=== PATIENT | female | born 1970 | race Hispanic/Latino ===

== ENCOUNTER 2018-05-24 05:48 | Day surgery (SDC) | payer OTHER ==
[2018-05-22 11:53] LABS: BASOPHILS % (AUTO) 0.7 % (0.0-5.0); EOSINOPHILS % (AUTO) 1.6 % (0.0-8.0); HEMATOCRIT 38.4 % (36-48); LYMPHOCYTES % (AUTO) 40.7 % (21.0-51.0); MEAN CORPUSCULAR HEMOGLOBIN 28.7 pg (27.0-33.0); MEAN CORPUSCULAR HGB CONC 33.2 g/dL (32.0-36.0); MEAN CORPUSCULAR VOLUME 86.6 fL (79-99); MONOCYTES % (AUTO) 5.1 % (3.0-13.0); NEUTROPHILS % (AUTO) 51.9 % (40.0-77.0); NUCLEATED RED BLOOD CELLS 0.1 % (0.0-0.19); PLATELET COUNT (AUTO) 220 K/uL (130-400); RED BLOOD CELL COUNT(AUTO) 4.44 MIL/uL (4.00-5.50); RED CELL DISTRIBUTION WIDTH 12.7 % (11.0-15.5); WHITE BLOOD COUNT (AUTO) 8.1 K/uL (4.8-10.8)
[2018-05-22 12:00] VITALS: BP 145/78
[2018-05-22 12:01] LABS: CREATININE 0.8 mg/dL (0.5-1.5); POTASSIUM 4.3 mmol/L (3.5-5.1)
[2018-05-22 12:33] LABS: INR 0.95 (0.85-1.15); PARTIAL THROMBOPLASTIN TIME 29.9 SEC (26.3-35.5)
[~2018-05-24] VITALS: Ht 157.5 cm; Wt 86.6 kg
[2018-05-24] VITALS (12 sets, daily range): BP systolic 96–148; BP diastolic 68–92
[~2018-05-24 05:48] MED LIST: ACET-66 PO; ASPI-555 PO; ATOR10 PO; ESOM20CA31 PO; VERA180T8 PO
[2018-05-24] MEDS ORDERED: SODIUM CHLORIDE 0.9% 1000ML 1,000 ML IV SCH (08:00)
[2018-05-24] MEDS ORDERED: LIDOCAINE HCL 1% MDV 50ML VIAL ONE (12:43)
[2018-05-24] MEDS ORDERED: ISOPROTERENOL HCL 0.2 MG/ML AMP/VIAL/BAG ONE ×2 (12:44→14:47)
[2018-05-24] MEDS ORDERED: MEPERIDINE-PF 25 MG/ML SYG ONE ×2 (12:54→13:52)
[2018-05-24] MEDS ORDERED: MIDAZOLAM HCL 1 MG/ML 2ML VIAL ONE ×4 (12:54→15:19)
[2018-05-24] MEDS ORDERED: IODIXANOL 320 MG/ML 100 ML VIAL ONE (14:13)
[2018-05-24] MEDS ORDERED: MEPERIDINE-PF 50 MG/ML SYG ONE ×2 (14:25→15:19)
[2018-05-24] MEDS ORDERED: HEPARIN SODIUM 1000UNIT/ML 10ML VIAL ONE (14:31)
[2018-05-24] MEDS ORDERED: ACETAMINOPHEN 325 MG TAB PO PRN (16:15)
[2018-05-24] MEDS ORDERED: ACETAMINOPHEN-CODEINE 300/30MG TAB PO PRN (16:15)
[2018-05-24] MEDS ORDERED: ONDANSETRON HCL 4 MG/2 ML VIAL ONE (17:33)
== END 2018-05-24 19:50 | disposition home or self-care (01) ==
LOC: DAH 05:48
PROVIDERS: ATTEND Internal Medicine Cardiovascular Disease
DX: I47.1 Supraventricular tachycardia (principal); E78.5 Hyperlipidemia, unspecified; I10 Essential (primary) hypertension; Z90.49 Acquired absence of other specified parts of digestive tract; Z79.899 Other long term (current) drug therapy; Z82.49 Family history of ischemic heart disease and other diseases of the circulatory system; Z79.01 Long term (current) use of anticoagulants
CPT/HCPCS: 36415; 80048; 85025; 85610; 85730; 93613; 93621; 93623; 93653; A4606; A4649; C1730 ×4; C1732; C1769; C1894 ×5; J1644 ×2; J2175 ×3; J2250 ×3; J2405; J3490 ×2; Q9967; 99156; 99157

== ENCOUNTER 2018-08-18 10:54 | Emergency (ER) | payer OTHER ==
[2018-08-18] MEDS ORDERED: KETOROLAC TROMETHAMINE 30MG/ML ONE (11:20)
[2018-08-18 11:33] LABS: BASOPHILS % (AUTO) 0.7 % (0.0-5.0); HEMATOCRIT 39.5 % (36-48); LYMPHOCYTES % (AUTO) 41.4 % (21.0-51.0); MEAN CORPUSCULAR HEMOGLOBIN 29.2 pg (27.0-33.0); MEAN CORPUSCULAR HGB CONC 33.8 g/dL (32.0-36.0); MEAN CORPUSCULAR VOLUME 86.5 fL (79-99); NEUTROPHILS % (AUTO) 51.9 % (40.0-77.0); NUCLEATED RED BLOOD CELLS 0.1 % (0.0-0.19); PLATELET COUNT (AUTO) 258 K/uL (130-400); RED BLOOD CELL COUNT(AUTO) 4.57 MIL/uL (4.00-5.50); RED CELL DISTRIBUTION WIDTH 12.9 % (11.0-15.5); WHITE BLOOD COUNT (AUTO) 6.8 K/uL (4.8-10.8)
[2018-08-18 11:38] LABS: CREATININE 0.8 mg/dL (0.5-1.5); POTASSIUM 4.3 mmol/L (3.5-5.1)
[2018-08-18 11:42] LABS: INR 0.95 (0.85-1.15); PARTIAL THROMBOPLASTIN TIME 30.5 SEC (26.3-35.5)
[2018-08-18 11:44] LABS: ALBUMIN 3.5 g/dL (3.5-5.0); BILIRUBIN,TOTAL 0.2 mg/dL (0.2-1.0); TOTAL PROTEIN, SERUM 7.2 g/dL (6.0-8.3)
== END 2018-08-18 13:03 | disposition home or self-care (01) ==
LOC: EDH 10:54
DX: M62.830 Muscle spasm of back (principal); R07.89 Other chest pain; M54.6 Pain in thoracic spine; E78.5 Hyperlipidemia, unspecified; I10 Essential (primary) hypertension; Z88.0 Allergy status to penicillin; Z90.49 Acquired absence of other specified parts of digestive tract
CPT/HCPCS: 36415; 71045; 80053; 84484; 85025; 85610; 85730; 93005; 96374; 99284; J1885

== ENCOUNTER → 2018-08-24 | Outpatient (CLI) | payer OTHER ==
[~2018-08-24] MED LIST changes: +REGADENOSON 0.4 MG/5 ML PF SYG IVP SCH
== END | disposition home or self-care (01) ==
LOC: SHCH 08:40
PROVIDERS: ATTEND Internal Medicine Cardiovascular Disease
DX: R07.9 Chest pain, unspecified (principal)
CPT/HCPCS: 78452; 93017; 96374; A9500 ×2; J2785

== ENCOUNTER → 2018-08-30 | Outpatient (CLI) | payer OTHER ==
[~2018-08-30] MED LIST changes: -REGADENOSON 0.4 MG/5 ML PF SYG IVP SCH
== END | disposition home or self-care (01) ==
LOC: SHCH 10:10
PROVIDERS: ATTEND Internal Medicine Cardiovascular Disease
DX: R07.9 Chest pain, unspecified (principal)
CPT/HCPCS: 93306

== ENCOUNTER → 2019-04-19 | Outpatient (CLI) | payer OTHER ==
[~2019-04-19] MED LIST changes: +VERA180T12 PO; -VERA180T8 PO
== END | disposition home or self-care (01) ==
LOC: RAH 14:17
PROVIDERS: ATTEND Family Medicine
DX: Z12.31 Encounter for screening mammogram for malignant neoplasm of breast (principal)
CPT/HCPCS: 77067

== ENCOUNTER 2020-05-13 20:42 | Observation (INO) | payer OTHER ==
[~2020-05-13] VITALS: Ht 152.4 cm; Wt 89.4 kg
[~2020-05-13 20:42] MED LIST changes: -ASPI-555 PO; +ASPI-556 PO
[2020-05-13] MEDS ORDERED: ONDANSETRON HCL 4 MG/2 ML VIAL ONE (20:57)
[2020-05-13 21:15] LABS: BASOPHILS % (AUTO) 0.4 % (0.0-5.0); EOSINOPHILS % (AUTO) 1.3 % (0.0-8.0); HEMATOCRIT 32.9 % (36-48); LYMPHOCYTES % (AUTO) 41.5 % (21.0-51.0); MEAN CORPUSCULAR HEMOGLOBIN 29.4 pg (27.0-33.0); MEAN CORPUSCULAR HGB CONC 33.1 g/dL (32.0-36.0); MEAN CORPUSCULAR VOLUME 88.7 fL (79-99); NEUTROPHILS % (AUTO) 52.3 % (40.0-77.0); PLATELET COUNT (AUTO) 255 K/uL (130-400); RED BLOOD CELL COUNT(AUTO) 3.71 MIL/uL (4.00-5.50); RED CELL DISTRIBUTION WIDTH 12.3 % (11.0-15.5); WHITE BLOOD COUNT (AUTO) 9.2 K/uL (4.8-10.8)
[2020-05-13 21:35] LABS: CREATININE 1.9 mg/dL (0.5-1.5); POTASSIUM 3.7 mmol/L (3.5-5.1)
[2020-05-13] MEDS ORDERED: SODIUM CHLORIDE 0.9% 1000ML 1,000 ML IV ONE (22:07)
[2020-05-13] MEDS ORDERED: SODIUM CHLORIDE 0.9% 1000ML 1,000 ML IV SCH (22:13)
[2020-05-13] MEDS ORDERED: ACETAMINOPHEN 325 MG TAB PO PRN ×2 (22:15)
[2020-05-13] MEDS ORDERED: ONDANSETRON HCL 4 MG/2 ML VIAL IV PRN (22:15)
[2020-05-13] MEDS ORDERED: HYDRALAZINE HCL 20 MG/ML VIAL IV PRN (22:15)
[2020-05-13] MEDS ORDERED: LACTULOSE 20 GM/30 ML UDCUP PO PRN (22:15)
[2020-05-13 23:22] LABS: APPEARANCE,URINE Clear (CLEAR); BILIRUBIN,URINE Negative (NEGATIVE); COLOR,URINE Yellow (YELLOW); GLUCOSE, URINE (UA) Negative (NEGATIVE); KETONES,URINE Negative (NEGATIVE); LEUKOCYTE ESTERASE ,URINE Trace (NEGATIVE); NITRATE,URINE Negative (NEGATIVE); OCCULT BLOOD,URINE Negative (NEGATIVE); PROTEIN,URINE Negative (NEGATIVE); UROBILINOGEN,URINE 0.2 mg/dL (0.2-1.0)
[2020-05-13 23:32] LABS: BACTERIA,URINE None Seen /HPF (None Seen); RBC,URINE None Seen /HPF (0-1); SQUAMOUS EPITHELIAL CELL,UR Few /HPF (0-2); WBC,URINE 0-1 /HPF (0-1)
[2020-05-14 03:35] VITALS: BP 123/64
--- NOTE | 2020-05-14 03:35 | NUR ---
ADMISSION NOTE: ADMITTED TO FLOOR VIA WHEELCHAIR. PT FULLY AWAKE AND RESPONSIVE, AOX4. VS CHECKED AND RECORDED. PHYSICAL ASSESSMENT DONE. (SEE CPOE FLOW CHART FOR FULL ASSESSMENT) HAS IVF OF NS 1L AT 100 ML/HR AT THE LEVEL OF 800 ML TO LAC #18 G VIA DIAL FLOW - PATENT AND INTACT. CHANGED ATTACHMENT TO INFUSION PUMP. ORIENTED TO ROOM AND USED OF CALL LIGHT. POLICIES AND PROCEDURES EXPLAINED. HOME MEDS LISTED. KEPT MONITORED. CARED FOR AND NEEDS ATTENDED. DISTRESS /DISCOMFORT NOT NOTED.
[2020-05-14 04:02] LABS: BASOPHILS % (AUTO) 0.4 % (0.0-5.0); EOSINOPHILS % (AUTO) 1.2 % (0.0-8.0); HEMATOCRIT 33.5 % (36-48); LYMPHOCYTES % (AUTO) 44.5 % (21.0-51.0); MEAN CORPUSCULAR HEMOGLOBIN 28.8 pg (27.0-33.0); MEAN CORPUSCULAR HGB CONC 32.5 g/dL (32.0-36.0); MEAN CORPUSCULAR VOLUME 88.4 fL (79-99); NEUTROPHILS % (AUTO) 49.5 % (40.0-77.0); PLATELET COUNT (AUTO) 246 K/uL (130-400); RED BLOOD CELL COUNT(AUTO) 3.79 MIL/uL (4.00-5.50); RED CELL DISTRIBUTION WIDTH 12.5 % (11.0-15.5); WHITE BLOOD COUNT (AUTO) 9.1 K/uL (4.8-10.8)
[2020-05-14] MEDS ORDERED: METO100T14 PO (04:02)
[2020-05-14] MEDS ORDERED: MELA10CA2 PO (04:02)
[2020-05-14] MEDS ORDERED: CYAN-35 PO (04:02)
[2020-05-14] MEDS ORDERED: AMLO10TA7 PO (04:02)
[2020-05-14] MEDS ORDERED: FERR325T22 PO (04:02)
[2020-05-14] MEDS ORDERED: FISH1CAP20 PO (04:02)
[2020-05-14] MEDS ORDERED: FENO145T26 PO (04:02)
[2020-05-14] MEDS ORDERED: OLME20TA22 PO (04:02)
[2020-05-14 04:21] LABS: CREATININE 1.1 mg/dL (0.5-1.5)
[2020-05-14 08:33] VITALS: BP 114/57
[2020-05-14] MEDS ORDERED: FISH OIL 1000 MG/CAP PO SCH (09:00)
[2020-05-14] MEDS ORDERED: FENOFIBRATE NANOCRYSTALLIZED 145 MG TAB PO SCH (09:00)
[2020-05-14] MEDS ORDERED: FAMOTIDINE 20MG TAB 20 MG TAB PO SCH (09:00)
[2020-05-14] MEDS ORDERED: ENOXAPARIN SODIUM 40 MG/0.4 ML SYRINGE SQ SCH (09:00)
--- NOTE | 2020-05-14 09:00 | NUR ---
AM MED NOT GIVEN PATIENT TOOK OWN HOME MEDICATIONS. GIG TENDER AWARE. STATES OKAY.
[2020-05-14 09:03] LABS: HEMOGLOBIN A1C 6.3 % (4.0-6.0)
[2020-05-14] MEDS ORDERED: AMLODIPINE BESYLATE 5 MG TAB PO SCH (09:42)
[2020-05-14] MEDS ORDERED: CYANOCOBALAMIN (VITAMIN B-12) 1,000 MCG TABLET PO SCH (09:43)
[2020-05-14] MEDS ORDERED: PANTOPRAZOLE SODIUM 40 MG TABLET.DR PO SCH (09:44)
[2020-05-14] MEDS ORDERED: FERROUS SULFATE 325 MG TABLET.DR PO SCH (09:45)
[2020-05-14] MEDS ORDERED: METOPROLOL TARTRATE 50 MG TAB PO SCH (09:46)
[2020-05-14] MEDS ORDERED: LOSARTAN 50 MG TABLET PO SCH (09:48)
[2020-05-14 11:48] VITALS: BP 110/69
--- NOTE | 2020-05-14 11:59 | NUR ---
pending machine tank operator to see [id number] 6.3 EDWARD Mata aware.
--- NOTE | 2020-05-14 12:50 | NUR ---
NUTRITION IMPLEMENTATION ANALYST-Assisted Nutrition Education. Pt is [place]-speaking only. MAGDA faxed Diabetes Nutrition education in [place] to [phone] JENNIFER notified. Addendum: 05/14/20 at [address] Amended: Links added.
--- NOTE | 2020-05-14 14:03 | NUR ---
PT D/C HOME D/C INSTRUCTIONS GIVEN RE; HOME MEDS, S/S TO WATCH FOR AND WHEN TO CALL 911 OR MD. PT ALSO INSTRUCTED ON WHEN TO F/U; D SEGUIMIENTO A GRANDA MDICO DE PRIMARIA EN 2-4 GARCIA PARA LA TRANSICIN DE LA CUIDADOS MEDICOS. PARA HABLAR SOBRE GRANDA RESULTADOS DE LA HEMOGOBINA A1C QUE ES; 6.3. SIGA DENISSE DIETA DIABETICA PARA PREVENIR DIABETES. SE LE DERIK INFORMACION ANTES DE MARIANNA DE [place] PARA QUE PUEDA CAMBIAR ALYX HABITOS DE NUTRICION Y PODER PREVENIR DIABETES. PUEDE HABLAR CON GRANDA MEDICO TAMBIEN SI TIENE MAS PREGUNTAS. AAOX3, NO DISTRESS, DENIES ANY QUESTIONS RE; DM OR PREVENTION. VERBALIZES UNDERSTANDING. IV OUT INTACT, NO BLEEDING.
[2020-05-14] MEDS ORDERED: ***HM*** (Melatonin 10 MG) PO SCH (21:00)
[2020-05-14] MEDS ORDERED: ATORVASTATIN CALCIUM 10 MG TABLET PO SCH (21:00)
[2020-05-14] MEDS ORDERED: ASPIRIN 81 MG EC TAB PO SCH (21:00)
[2020-05-15] MEDS ORDERED: IOHEXOL 350 MG/ML 100ML INFUS..BTL IV ONE (10:25)
== END 2020-05-14 14:30 | disposition home or self-care (01) ==
LOC: EDH 20:42 → EDHIP 22:13 → INTOOBSV 22:13 → 3BH 05-14 02:13
PROVIDERS: ADMIT Internal Medicine; ATTEND Internal Medicine
DX: T67.5XXA Heat exhaustion, unspecified, initial encounter (principal); E86.0 Dehydration; N17.9 Acute kidney failure, unspecified; I10 Essential (primary) hypertension; E78.5 Hyperlipidemia, unspecified; Z90.710 Acquired absence of both cervix and uterus; Z98.51 Tubal ligation status; Z88.0 Allergy status to penicillin; X58.XXXA Exposure to other specified factors, initial encounter; Y93.89 Activity, other specified; Y92.89 Other specified places as the place of occurrence of the external cause; Y99.8 Other external cause status
CPT/HCPCS: 36415 ×2; 76770; 80048 ×2; 81001; 82550 ×2; 83036; 84484; 85025 ×2; 93005; 96360; 96361; 96372; 99285; G0378 ×3; J1650; J2405; J7030; Q9967

== ENCOUNTER → 2022-01-07 | Outpatient (CLI) | payer OTHER ==
[~2022-01-07] VITALS: Ht 160 cm; Wt 94.3 kg
[~2022-01-07] MED LIST changes: +AMLO-258 PO; +CYAN-35 PO; +FENO145T26 PO; +FERR325T22 PO; +FISH1CAP20 PO; +MELA10CA2 PO; +METO100T14 PO; +OLME20TA22 PO; +REGADENOSON 0.4 MG/5 ML PF SYG IVP SCH; -VERA180T12 PO
== END ==
LOC: SHCH 08:00
PROVIDERS: ATTEND Internal Medicine Cardiovascular Disease
DX: R07.9 Chest pain, unspecified (principal)
CPT/HCPCS: 78452; 93017; 96374; A9500 ×2; J2785

== ENCOUNTER → 2022-11-03 | Outpatient (CLI) | payer OTHER ==
[~2022-11-03] MED LIST changes: -REGADENOSON 0.4 MG/5 ML PF SYG IVP SCH
== END | disposition home or self-care (01) ==
LOC: RAH 13:00
PROVIDERS: ATTEND Internal Medicine Cardiovascular Disease
DX: Z13.6 Encounter for screening for cardiovascular disorders (principal)
CPT/HCPCS: 75571

== ENCOUNTER → 2023-04-10 | Outpatient (CLI) | payer OTHER ==
[2023-04-10 16:39] LABS: CREATININE 0.8 mg/dL (0.5-1.5); MAGNESIUM 2.1 mg/dL (1.80-2.40); POTASSIUM 4.1 mmol/L (3.5-5.1)
== END | disposition home or self-care (01) ==
LOC: LAB 13:33
PROVIDERS: ATTEND Physician Assistant
DX: I10 Essential (primary) hypertension (principal); E78.5 Hyperlipidemia, unspecified
CPT/HCPCS: 36415; 80048; 83735

== ENCOUNTER → 2023-09-11 | Outpatient (CLI) | payer OTHER ==
[~2023-09-11] MED LIST changes: -OLME20TA22 PO; +OLME20TA68 PO
[2023-09-11 12:29] LABS: ALBUMIN 3.7 g/dL (3.5-5.0); BILIRUBIN,TOTAL 0.2 mg/dL (0.2-1.0); CREATININE 0.8 mg/dL (0.5-1.5); POTASSIUM 3.9 mmol/L (3.5-5.1); TOTAL PROTEIN, SERUM 7.5 g/dL (6.0-8.3)
== END | disposition home or self-care (01) ==
LOC: LAB 10:36
PROVIDERS: ATTEND Physician Assistant
DX: I10 Essential (primary) hypertension (principal); E78.5 Hyperlipidemia, unspecified
CPT/HCPCS: 36415; 80053; 80061

== ENCOUNTER → 2024-02-29 | Outpatient (CLI) | payer OTHER | END | disposition home or self-care (01) | LOC: SHCH 07:43 | PROVIDERS: ATTEND Internal Medicine Cardiovascular Disease | DX: I10 Essential (primary) hypertension (principal) | CPT/HCPCS: 93306 ==

== ENCOUNTER → 2024-09-24 | Outpatient (CLI) | payer OTHER ==
[2024-09-24 16:35] LABS: ALANINE AMINOTRANSFERASE 33 U/L (12-78); ALBUMIN 3.8 g/dL (3.5-5.0); ASPARTATE AMINOTRANSFERASE 26 U/L (10-37); BILIRUBIN,DIRECT < 0.1 mg/dL (0.0-0.3); BILIRUBIN,TOTAL 0.2 mg/dL (0.2-1.0); CHOLESTEROL 157 mg/dL (<200); HDL CHOLESTEROL 31 mg/dL (35-85); LDL DIRECT 106 mg/dL (0-99); TOTAL PROTEIN, SERUM 7.6 g/dL (6.0-8.3); TRIGLYCERIDES 147 mg/dL (30-200)
== END | disposition home or self-care (01) ==
LOC: LAB 11:20
PROVIDERS: ATTEND Internal Medicine Cardiovascular Disease
DX: I10 Essential (primary) hypertension (principal); E78.00 Pure hypercholesterolemia, unspecified
CPT/HCPCS: 36415; 80061; 80076

== ENCOUNTER → 2024-12-19 | Outpatient (CLI) | payer OTHER ==
--- NOTE | 2024-12-19 09:48 | HMCIMG ---
MAMMO SCREENING BILATERAL HISTORY: Screening mammogram. COMPARISON: 04/19/2019 TECHNIQUE: Bilateral screening mammogram with CAD was performed with craniocaudal and mediolateral oblique projections. FINDINGS: The breasts are heterogeneous dense, which may obscure small masses. There is no evidence of a dominant mass, or suspicious microcalcification. There is no evidence of nipple retraction or skin thickening. IMPRESSION: 1. Stable mammogram. Patient was entered into a reminder system with a target due date for their next mammogram. BI-RADS: CATEGORY 2: BENIGN FINDINGS Recommend monthly self breast exam as well as annual clinical examination. A negative x-ray should not delay biopsy if a dominant or clinically suspicious mass is present, since 8-10% of cancers are not identified by mammography. Dense breasts particularly, may obscure an underlying neoplasm. Some of these may be detected clinically and therefore, clinical examination is an essential part of breast evaluation.
== END | disposition home or self-care (01) ==
LOC: RAH 07:23
PROVIDERS: ATTEND Family Medicine
DX: Z12.31 Encounter for screening mammogram for malignant neoplasm of breast (principal); R92.333 Mammographic heterogeneous density, bilateral breasts
CPT/HCPCS: 77067